=== PATIENT | female | born 1995 | race Caucasian/White ===

== ENCOUNTER 2021-04-03 18:37 | Emergency (ER) | payer OTHER ==
[~2021-04-03] VITALS: Ht 160 cm; Wt 72.6 kg
[2021-04-03] MEDS ORDERED: LEXAPRO 10 MG T10 M2 PO (19:33)
[2021-04-03] MEDS ORDERED: IMITREX100 MG PO (19:34)
[2021-04-03] MEDS ORDERED: HAILEY 24 FE 11 EACH PO (19:35)
[2021-04-03] MEDS ORDERED: AUGMENTIN 875-1 EACH PO (20:17)
[2021-04-03] MEDS ORDERED: IMOVAX RABIE2.5 UNIT IM ×2 (20:17)
[2021-04-03 20:33] VITALS: BP 133/82
== END 2021-04-03 20:37 | disposition home or self-care (01) ==
LOC: M.ERS 18:37
DX: S61.452A Open bite of left hand, initial encounter (principal); G43.909 Migraine, unspecified, not intractable, without status migrainosus; Z79.899 Other long term (current) drug therapy; W55.01XA Bitten by cat, initial encounter; Y93.F9 Activity, other caregiving; Y92.89 Other specified places as the place of occurrence of the external cause; Y99.0 Civilian activity done for income or pay

== ENCOUNTER → 2021-04-06 | Outpatient (CLI) | payer OTHER ==
[~2021-04-06] MED LIST: AUGMENTIN 875-1 EACH PO; HAILEY 24 FE 11 EACH PO; IMITREX100 MG PO; IMOVAX RABIE2.5 UNIT IM; LEXAPRO 10 MG T10 M2 PO
== END ==
LOC: M.OPS 15:57
PROVIDERS: ATTEND Physician Assistant
DX: Z23 Encounter for immunization (principal)

== ENCOUNTER 2021-04-07 09:16 | Emergency (ER) | payer OTHER ==
[~2021-04-07] VITALS: Ht 160 cm; Wt 72.6 kg
[2021-04-07 11:09] VITALS: BP 128/88
== END 2021-04-07 11:10 | disposition home or self-care (01) ==
LOC: M.ERS 09:16
DX: S61.451D Open bite of right hand, subsequent encounter (principal); G43.909 Migraine, unspecified, not intractable, without status migrainosus; Z20.3 Contact with and (suspected) exposure to rabies; Z79.2 Long term (current) use of antibiotics; Z79.899 Other long term (current) drug therapy; W55.01XD Bitten by cat, subsequent encounter